=== PATIENT | female | born 1960 | race Caucasian/White ===

== ENCOUNTER 2021-12-29 15:06 | Inpatient (IN) ==
[2021-12-29 15:48] LABS: Basophils % 0.3 %; Eosinophils # 0.2 K/mcL (0.0-0.6); Eosinophils % 3.5 %; Hematocrit 41.3 % (35.3-44.9); Hemoglobin 13.4 g/dL (11.5-15.4); Immature Granulocytes % 0.3 % (0-4); Lymphocytes # 1.5 K/mcL (0.6-4.6); Lymphocytes % 25.8 %; Mean Corpuscular HGB Conc 32.4 g/dL (31.6-35.5); Mean Corpuscular Hemoglobin 35.5 pg (28.0-33.3); Mean Corpuscular Volume 109.5 fL (83.0-100.0); Mean Platelet Volume 10.2 fL (9.4-12.4); Monocytes # 0.4 K/mcL (0.0-1.3); Monocytes % 6.2 %; Neutrophils # 3.8 K/mcL (1.6-8.9); Platelet Count 167 K/mcL (140-400); Red Blood Count 3.77 M/mcL (3.82-4.97); Red Cell Distribution Width 14.9 % (11.5-14.5); Segmented Neutrophils % 63.9 %; White Blood Count 5.9 K/mcL (4.3-11.1)
[2021-12-29 15:59] LABS: BUN/Creatinine Ratio 21 (6-26); Blood Urea Nitrogen 16 mg/dL (8-23); Calcium 9.2 mg/dL (8.6-10.3); Carbon Dioxide 29 mEq/L (23-29); Chloride 105 mEq/L (98-107); Glucose 100 mg/dL (70-105); Osmolality,Calculated 289 (280-300); Potassium 3.9 mEq/L (3.5-5.1); Sodium 139 mEq/L (136-145); Troponin I < 0.03 ng/mL (< 0.04)
[2021-12-29] MEDS ORDERED: methylPREDNISolone 125 MG/2 ML VIAL IVP ONE (22:58)
[2021-12-29] MEDS ORDERED: Ipratropium/Albuterol Neb 3 ML IH ONE (22:58)
[2021-12-29] MEDS ORDERED: Albuterol 2.5 MG/3 ML NEBULIZER IH ONE (22:58)
[2021-12-29 23:01] LABS: Alanine Aminotransferase 10 Units/L (7-52); Albumin 4.3 g/dL (3.5-5.7); Albumin/Globulin Ratio 1.4 (1.1-2.2); Alkaline Phosphatase 73 Units/L (34-104); Aspartate Amino Transferase 10 Units/L (13-39); Bilirubin,Direct 0.1 mg/dL (0.0-0.2); Bilirubin,Indirect 0.3 mg/dL (0.0-1.0); Bilirubin,Total 0.4 mg/dL (0.3-1.0); Globulin 3.1 g/dL (2.4-3.5); Lipase 24 Units/L (11-82); Total Protein 7.4 g/dL (6.4-8.9)
[2021-12-30] MEDS ORDERED: Albuterol 2.5 MG/3 ML NEBULIZER IH ONE (00:55)
[2021-12-30] MEDS ORDERED: Aspirin 325 MG TABLET PO ONE (01:37)
[2021-12-30] MEDS ORDERED: *HR* HYDROcodone/Acet 5/325 mg TABLET PO PRN (02:30)
[2021-12-30] MEDS ORDERED: Ondansetron ODT 4 MG TAB.RAPDIS SL PRN (02:30)
[2021-12-30] MEDS ORDERED: *HR* OxyCODONE Immed Rel 5 MG TABLET PO PRN (02:30)
[2021-12-30] MEDS ORDERED: Melatonin 3 MG TABLET PO PRN (02:30)
[2021-12-30] MEDS ORDERED: Naloxone 0.4 MG/ML INJ IVP PRN (02:30)
[2021-12-30] MEDS ORDERED: Acetaminophen 325 MG TABLET PO PRN (02:30)
[2021-12-30] MEDS ORDERED: Nitroglycerin 0.4 MG TAB.SUBL SL PRN (02:57)
[2021-12-30] MEDS ORDERED: Ipratropium/Albuterol Neb 3 ML IH PRN (03:07)
[2021-12-30 05:21] LABS: Hematocrit 40.3 % (35.3-44.9); Hemoglobin 12.9 g/dL (11.5-15.4); Mean Corpuscular Hemoglobin 35.7 pg (28.0-33.3); Mean Corpuscular Volume 111.6 fL (83.0-100.0); Platelet Count 149 K/mcL (140-400); Red Blood Count 3.61 M/mcL (3.82-4.97); Red Cell Distribution Width 15.1 % (11.5-14.5); White Blood Count 6.3 K/mcL (4.3-11.1)
[2021-12-30 05:23] LABS: Estimated Average Glucose 117 mg/dl; Hemoglobin A1C 5.7 %
[2021-12-30 05:33] LABS: Calcium 8.9 mg/dL (8.6-10.3); Chol/HDL Ratio 5.3 (0-4.9); Magnesium 1.8 mg/dL (1.6-2.6); Phosphorous 3.5 mg/dL (2.7-4.5); Potassium 3.8 mEq/L (3.5-5.1)
[2021-12-30 05:46] LABS: Thyroid Stimulating Hormone 6.255 mcIU/mL (0.340-5.600)
[2021-12-30] MEDS ORDERED: Regadenoson 0.4 MG/5 ML SYRINGE IVP ONE (06:13)
[2021-12-30 08:11] LABS: Bilirubin,Urine Negative (Negative); Blood,Urine Negative (Negative); Clarity,Urine Clear (Clear); Color,Urine Yellow (Yellow); Glucose,Urine (UA) Normal (Normal); Ketones,Urine Negative (Negative); Leukocyte Esterase,Urine Negative (Negative); Nitrite,Urine Negative (Negative); Protein,Urine Trace mg/dL (Neg-Trace); Specific Gravity,Urine 1.029 (1.010-1.025); Urobilinogen,Urine Normal (Normal)
[2021-12-30] MEDS: Aspirin 81 MG TAB.CHEW PO SCH (08:39)
[2021-12-30 09:31] LABS: Amphetamine Screen,Urine Negative ng/mL (Cutoff=1000); Barbiturate Screen,Urine Negative ng/mL (Cutoff=200); Benzodiazepines Screen,Urine Negative ng/mL (Cutoff=200); Cannabinoid Screen,Urine Negative ng/mL (Cutoff = 50); Cocaine Screen,Urine Negative ng/mL (Cutoff= 300); Opiate Screen,Urine Negative ng/mL (Cutoff=300); Phencyclidine Screen,Urine Negative ng/mL (Cutoff=25)
[2021-12-30] MEDS ORDERED: Albuterol 2.5 MG/3 ML NEBULIZER IH PRN (13:00)
[2021-12-30] MEDS: Nicotine 21 MG PATCH.TD24 TD SCH (13:35)
[2021-12-30] MEDS ORDERED: Furosemide 40 MG/4 ML VIAL IVP ONE (16:14)
[2021-12-30] MEDS: Ipratropium/Albuterol Neb 3 ML IH SCH ×2 (16:39→22:11)
[2021-12-30] MEDS: BuPROPion SR (12 HR) 150 MG TABLET PO SCH (20:07)
[2021-12-31] MEDS: Ipratropium/Albuterol Neb 3 ML IH SCH ×4 (03:44→21:39)
[2021-12-31] MEDS ORDERED: Regadenoson 0.4 MG/5 ML SYRINGE IVP ONE (06:20)
[2021-12-31] MEDS: Nicotine 21 MG PATCH.TD24 TD SCH (09:49)
[2021-12-31] MEDS: Aspirin 81 MG TAB.CHEW PO SCH (09:49)
[2021-12-31] MEDS: BuPROPion SR (12 HR) 150 MG TABLET PO SCH ×2 (09:49→23:34)
[2021-12-31] MEDS: predniSONE 20 MG TABLET PO SCH (09:49)
[2021-12-31] MEDS: Metoprolol XL (24 HR) Succ 25 MG TAB.ER.24H PO SCH (13:30)
[2021-12-31] MEDS: *HR* Heparin 5,000 UNIT/ML VIAL SQ SCH (17:44)
[2022-01-01] MEDS: Ipratropium/Albuterol Neb 3 ML IH SCH ×4 (03:44→22:04)
[2022-01-01] MEDS: *HR* Heparin 5,000 UNIT/ML VIAL SQ SCH ×2 (05:53→15:24)
[2022-01-01] MEDS: BuPROPion SR (12 HR) 150 MG TABLET PO SCH ×2 (07:42→21:10)
[2022-01-01] MEDS: Metoprolol XL (24 HR) Succ 25 MG TAB.ER.24H PO SCH (07:42)
[2022-01-01] MEDS: predniSONE 20 MG TABLET PO SCH (07:42)
[2022-01-01] MEDS: Aspirin 81 MG TAB.CHEW PO SCH (07:42)
[2022-01-01] MEDS: Nicotine 21 MG PATCH.TD24 TD SCH ×2 (08:24→16:36)
[2022-01-01] MEDS ORDERED: Nitroglycerin 1,000 MCG/5 ML VIAL IV ONE ×2 (09:37→10:38)
[2022-01-01] MEDS ORDERED: *HR* Heparin 10,000 UNIT/10 ML VIAL ONE ×2 (09:37→10:12)
[2022-01-01] MEDS ORDERED: 0.9 % Sodium Chloride 1,000 ML ONE ×2 (09:37→09:38)
[2022-01-01] MEDS ORDERED: Iopamidol - 370 200 ML INFUS..BTL ONE (09:37)
[2022-01-01] MEDS ORDERED: Heparin 1,000 UNITS/500 mL 500 ML ONE (09:37)
[2022-01-01] MEDS ORDERED: *HR* FentaNYL (PF) 100 MCG/2 ML VIAL ONE (09:57)
[2022-01-01] MEDS ORDERED: *HR* Midazolam HCl 2 MG/2 ML VIAL ONE (09:57)
[2022-01-01] MEDS ORDERED: *HR* Atropine Sulfate 1 MG/10 ML SYRINGE ONE (10:17)
[2022-01-02] MEDS: Ipratropium/Albuterol Neb 3 ML IH SCH ×2 (04:14→10:58)
[2022-01-02 05:10] VITALS: PULSE 62
[2022-01-02] MEDS: *HR* Heparin 5,000 UNIT/ML VIAL SQ SCH (06:04)
[2022-01-02 07:23] VITALS: BP 137/73; TEMP 98.1
[2022-01-02 09:31] LABS: Basophils % 0.3 %; Eosinophils # 0.1 K/mcL (0.0-0.6); Eosinophils % 0.9 %; Hematocrit 39.4 % (35.3-44.9); Hemoglobin 12.9 g/dL (11.5-15.4); Immature Granulocytes % 0.3 % (0-4); Lymphocytes # 1.6 K/mcL (0.6-4.6); Lymphocytes % 22.6 %; Mean Corpuscular HGB Conc 32.7 g/dL (31.6-35.5); Mean Corpuscular Hemoglobin 36.1 pg (28.0-33.3); Mean Corpuscular Volume 110.4 fL (83.0-100.0); Mean Platelet Volume 9.7 fL (9.4-12.4); Monocytes # 0.4 K/mcL (0.0-1.3); Monocytes % 5.9 %; Platelet Count 156 K/mcL (140-400); Red Blood Count 3.57 M/mcL (3.82-4.97); Red Cell Distribution Width 15.4 % (11.5-14.5); White Blood Count 6.9 K/mcL (4.3-11.1)
[2022-01-02] MEDS: Aspirin 81 MG TAB.CHEW PO SCH (09:31)
[2022-01-02] MEDS: predniSONE 20 MG TABLET PO SCH (09:31)
[2022-01-02] MEDS: Metoprolol XL (24 HR) Succ 25 MG TAB.ER.24H PO SCH (09:31)
[2022-01-02] MEDS: BuPROPion SR (12 HR) 150 MG TABLET PO SCH (09:31)
[2022-01-02] MEDS: Nicotine 21 MG PATCH.TD24 TD SCH (09:32)
[2022-01-02 09:44] LABS: Neutrophils # 4.8 K/mcL (1.6-8.9)
[2022-01-02 09:45] LABS: Anisocytosis 1+ (Not Present); Macrocytosis Present (Not Present); Platelet Estimate Normal (Normal)
[2022-01-02 09:53] LABS: BUN/Creatinine Ratio 25 (6-26); Blood Urea Nitrogen 20 mg/dL (8-23); Calcium 8.6 mg/dL (8.6-10.3); Carbon Dioxide 27 mEq/L (23-29); Chloride 104 mEq/L (98-107); Glucose 133 mg/dL (70-105); Osmolality,Calculated 289 (280-300); Potassium 3.6 mEq/L (3.5-5.1); Sodium 137 mEq/L (136-145); Troponin I < 0.03 ng/mL (< 0.04)
[2022-01-02 11:01] VITALS: O2SAT 95
== END 2022-01-02 15:13 | disposition home or self-care (01) | DRG 246 ==
LOC: EMEROOARM 15:06 → 3BNU 15:06
PROVIDERS: ADMIT Internal Medicine; ATTEND Internal Medicine